=== PATIENT | male | born 1945 | race Caucasian/White ===

== ENCOUNTER → 2018-08-02 | Outpatient (CLI) | payer MEDICARE ==
--- NOTE | 2018-08-02 12:21 | RADIOLOGY REPORT (SQ) ---
EXAM DESCRIPTION: CT ORBIT/SELLA WITHOUT COMPLETED DATE/TIME: 08/02/2018 9:27 am REASON FOR STUDY: UNSPECIFIED CHOLESTEATOMA, RIGHT EAR H71.91 UNSPECIFIED CHOLESTEATOMA, RIGHT EAR COMPARISON: None. TECHNIQUE: Noncontrasted thin section axial images through the temporal bones and skull base were ob tained and reviewed at bone windows and bone algorithm with coronal and sagittal reconstructions. All CT scanners at this facility use dose modulation, iterative reconstruction, and/or weight based d osing when appropriate to reduce radiation dose to as low as reasonably achievable (ALARA). [facility]: Dose Right [facility]: CareDose [facility]: Dose Right [facility]: Teradose 4D [facility]: [employer] RADIATION DOSE: 15.9 mGy. LIMITATIONS: None. FINDINGS: RIGHT SIDE: EXTERNAL AUDITORY CANAL: Widely patent. TYMPANIC MEMBRANE: No masses, thickening or medial retraction. OSSICLES AND MIDDLE EAR CAVITY: Normal ossicles. No middle ear masses or fluid. INNER EAR STRUCTURES: Normal vestibule and cochlea. Normal aqueducts. INTERNAL AUDITORY CANAL: Normal bony canal without narrowing or widening. No calcified or ossified m asses. TEMPOROMANDIBULAR JOINT: Moderate right osteoarthritis temporomandibular joint best shown on coronal image 184 through 190 MASTOID AIR CELLS: Clear. LEFT SIDE: EXTERNAL AUDITORY CANAL: Widely patent. TYMPANIC MEMBRANE: No masses, thickening or medial retraction. OSSICLES AND MIDDLE EAR CAVITY: Normal ossicles. No middle ear masses or fluid. INNER EAR STRUCTURES: Normal vestibule and cochlea. Normal aqueducts. INTERNAL AUDITORY CANAL: Normal bony canal without narrowing or widening. No calcified or ossified m asses. TEMPOROMANDIBULAR JOINT: Normal. MASTOID AIR CELLS: Clear. CENTRAL SKULL BASE: Normal foramina. No lytic or blastic lesions. INFERIOR BRAIN: Limited view. No acute findings. LIMITED VIEW OF PARANASAL SINUSES IN THE FIELD OF VIEW: Mucus or serous retention cyst floor right ma xillary sinus IMPRESSION: RIGHT TMJ ARTHRITIS. OTHERWISE, UNREMARKABLE NONCONTRASTED TEMPORAL BONE CT. TECHNICAL DOCUMENTATION: JOB ID: [id number] Quality ID # [id number]: Final reports with documentation of one or more dose reduction techniques (e.g., Au tomated exposure control, adjustment of the mA and/or kV according to patient size, use of iterative reconstruction technique) 2010 [employer]- All Rights Reserved Reading location - IP/workstation name: [email or web address]
== END ==
LOC: RAD 08:59
PROVIDERS: ATTEND Otolaryngology
DX: H71.91 Unspecified cholesteatoma, right ear (principal)
CPT/HCPCS: 70480

== ENCOUNTER 2019-05-23 06:40 | Day surgery (SDC) | payer MEDICARE ==
[2019-05-23] MEDS ORDERED: ONDANSETRON HCL INJ/PF 4 MG/2 ML SDV ONE (07:23)
[2019-05-23] MEDS ORDERED: DIPHENHYDRAMINE HCL 50 MG/ML VIAL ONE (07:23)
[2019-05-23] MEDS ORDERED: MIDAZOLAM 2 MG/2 ML INJ ONE (07:24)
[2019-05-23] MEDS ORDERED: GLUCAGON,HUMAN RECOMB 1 MG INJ ONE (07:24)
[2019-05-23] MEDS ORDERED: EPINEPHRINE INJ 1 MG/10 ML DISP.SYRIN ONE (07:24)
[2019-05-23] MEDS ORDERED: FLUMAZENIL INJ 0.5 MG/5 ML VIAL ONE (07:24)
[2019-05-23] MEDS ORDERED: FENTANYL CITRATE INJ/PF 100 MCG/2 ML AMPUL ONE (07:24)
[2019-05-23] MEDS ORDERED: NALOXONE HCL INJ/PF 0.4 MG/1 ML SDV ONE (07:24)
[2019-05-23 08:21] VITALS: BP 149/92
--- NOTE | 2019-05-23 08:23 | Operative Report ---
Nonrecallable Operative Report DATE OF SURGERY: 05/23/19 PREOPERATIVE DIAGNOSIS: screening colononscopy POSTOPERATIVE DIAGNOSIS: Screening colonoscopy OPERATION: Screening colonoscopy SURGEON: RAJWINDER PEÑA ANESTHESIA: Other - No sedation TISSUE REMOVED OR ALTERED: Cecal biopsy COMPLICATIONS: None ESTIMATED BLOOD LOSS: 0 INTRAOPERATIVE FINDINGS: Small polyp in cecum PROCEDURE: Patient was brought to the endoscopy suite awake alert stable condition placed on the endoscopy table in a left lateral decubitus position he was given no sedation during the procedure. The Olympus colonoscope was passed into the rectum traversed the sigmoid colon through the descending colon splenic flexure transverse colon hepatic flexure down the ascending colon to the cecum. There is no significant findings on the placement of the scope in the cecum however there was a small polyp versus swelling of 1 of the folds of the cecum. This was cold biopsied. Then the scope was slowly withdrawn examining the cecum the ascending colon, hepatic flexure transverse colon splenic flexure and then down the descending colon there were no polyps seen. There is no mucosal abnormality seen. As we slowly withdrew the scope through the descending colon through the sigmoid colon the rectum there was no evidence of any mucosal abnormalities or polyps. There were no hemorrhoids. The scope was slowly withdrawn. The patient tolerated the procedure well and had a good prep. Patient was then transferred to recovery in stable condition. Patient will return to the office for biopsy results. If the biopsy is negative he needs a repeat colonoscopy in 10 years.
--- NOTE | 2019-05-23 08:24 | Discharge Summary ---
Discharge Summary (SDC) - Discharge Final Diagnosis: Screening colonoscopy Date of Surgery: 05/23/19 Discharge Date: 05/23/19 Condition: Good Discharge Diet: As Tolerated Discharge Activity: Activity As Tolerated, Balance Activity w/Rest, No Driving Home Care Assistance: None Needed Report the Following to Your Physician Immediately: Shortness of Breath, Nausea, Vomiting, Increase in Pain, Fever over 101 Degrees, Unusual Bleeding, IV Site Infection Signs
== END 2019-05-23 08:40 | disposition home or self-care (01) ==
LOC: END 06:40
PROVIDERS: ATTEND Surgery
DX: Z12.11 Encounter for screening for malignant neoplasm of colon (principal); D12.0 Benign neoplasm of cecum; Z86.010 Personal history of colon polyps; I10 Essential (primary) hypertension; Z87.891 Personal history of nicotine dependence
CPT/HCPCS: 45380; 88305; J0171; J1200; J1610; J2250; J2310; J2405; J3010; J3490